=== PATIENT | male | born 2005 | race Caucasian/White ===

== ENCOUNTER 2025-06-22 13:58 | Emergency (ER) | payer MEDICAID ==
[~2025-06-22] VITALS: Ht 172.7 cm; Wt 70.0 kg
[2025-06-22 14:01] VITALS: O2SAT 100
[2025-06-22 14:07] VITALS: BP 125/80; PULSE 105; RESP 16; TEMP 36.8; O2SAT 100
[2025-06-22] MEDS ORDERED: IBUP-2028 MT (15:06)
[2025-06-22] MEDS ORDERED: AMOX1TAB16 MT (15:06)
== END 2025-06-22 15:27 | disposition home or self-care (01) ==
LOC: ER 13:58
DX: J02.9 Acute pharyngitis, unspecified (principal); J30.81 Allergic rhinitis due to animal (cat) (dog) hair and dander; Z20.822 Contact with and (suspected) exposure to COVID-19
CPT/HCPCS: 87070; 87426; 87430; 99283

== ENCOUNTER 2025-11-17 21:53 | Emergency (ER) | payer MEDICAID ==
[~2025-11-17] VITALS: Ht 175.3 cm; Wt 67.4 kg
[~2025-11-17 21:53] MED LIST: AMOX1TAB16 MT; IBUP-2028 MT
[2025-11-17 22:12] VITALS: O2SAT 100
[2025-11-17] MEDS ORDERED: DIPH25CA83 MT (22:53)
[2025-11-17] MEDS ORDERED: P50 MT (22:53)
[2025-11-17] MEDS: DIPHENHYDRAMINE 25MG CAPSULE PO ONE (23:02)
[2025-11-17] MEDS: PREDNISONE 20MG TABLET PO ONE (23:03)
[2025-11-17 23:06] VITALS: BP 125/76; PULSE 84; RESP 15; TEMP 36.7; O2SAT 100
== END 2025-11-17 23:07 | disposition home or self-care (01) ==
LOC: ER 21:53
DX: R21 Rash and other nonspecific skin eruption (principal)
CPT/HCPCS: 99283; Q0163; J7512